=== PATIENT | male | born 1950 | race Caucasian/White ===

== ENCOUNTER 2025-02-23 10:19 | Emergency (ER) | payer OTHER, SELFPAY ==
[2025-02-23] VITALS (8 sets, daily range): BP systolic 113–136; BP diastolic 77–88; PULSE 90–107; RESP 18; TEMP 36.8; O2SAT 90–97; BMI 29.2
--- NOTE | 2025-02-23 11:06 | XRR_ITS ---
PROCEDURE INFORMATION: Exam: XR Chest Exam date and time: 02/23/2025 11:11 AM Age: 74 years old Clinical indication: Shortness of breath TECHNIQUE: Imaging protocol: Radiologic exam of the chest. Views: 1 view. COMPARISON: No relevant prior studies available. FINDINGS: Lungs: Unremarkable. No consolidation. Pleural spaces: Unremarkable. No pleural effusion. No pneumothorax. Heart/Mediastinum: Unremarkable. No cardiomegaly. Bones/joints: Unremarkable. XR/XR chest 1V portable [id number] IMPRESSION: No acute findings.
--- NOTE | 2025-02-23 11:14 | W.ED.COVID ---
HPI - COVID General: Chief Complaint: COVID symptoms Stated Complaint: Score throat coughing Fever on and off Time Seen by Provider: 02/23/25 11:06 History of Present Illness: 74-year-old male with a history of hypertension and diabetes who presents to the emergency room with cough, congestion, sore throat, fevers for about 4 to 5 days now. He said he thought it was can get better but it did not. He is not really short of breath. No chest pain. No altered mental status. No nausea or vomiting. COVID Results: SARS-CoV-2 (PCR) Pending Today, 11:13 Related Data Previous Rx's ?Medication ?Instructions ?Recorded benzonatate 200 mg capsule 200 mg PO TID PRN cough #30 caps 02/23/25 dexamethasone 6 mg tablet 6 mg PO DAILY 5 days #5 tabs 02/23/25 doxycycline monohydrate 100 mg 100 mg PO BID 10 days #20 caps 02/23/25 capsule Allergies Allergy/AdvReac Type Severity Reaction Status Date / Time No Known Allergies Allergy Verified 02/23/25 11:12 Review of Systems Narrative: Constitutional symptoms: Negative except as documented in HPI. Skin symptoms: Negative except as documented in HPI. Eye symptoms: Negative except as documented in HPI. ENMT symptoms: Negative except as documented in HPI. Respiratory symptoms: Negative except as documented in HPI. Cardiovascular symptoms: Negative except as documented in HPI. Gastrointestinal symptoms: Negative except as documented in HPI. Genitourinary symptoms: Negative except as documented in HPI. Musculoskeletal symptoms: Negative except as documented in HPI. Neurologic symptoms: Negative except as documented in HPI. Psychiatric symptoms: Negative except as documented in HPI. Endocrine symptoms: Negative except as documented in HPI. Physical Exam Narrative: EXAM NARRATIVE: General: Alert, no acute distress. Skin: Warm, dry. Head: Normocephalic, atraumatic. Neck: Supple, trachea midline. Eye: Extraocular movements are intact. Ears, nose, mouth and throat: mucosa moist. Cardiovascular: Regular, Normal peripheral perfusion. Respiratory: Lungs are clear to auscultation, respirations are non-labored, breath sounds are equal, Symmetrical chest wall expansion. Gastrointestinal: Soft, Nontender, Non distended Musculoskeletal: Normal ROM, no deformity. Neurological: Alert and oriented, No focal neurological deficit observed. Psychiatric: Cooperative, appropriate mood & affect. Course Vital Signs: Vital signs: Vital Signs Temperature 98.3 F 02/23/25 11:08 Pulse Rate 107 H 02/23/25 11:08 Respiratory Rate 18 02/23/25 11:08 Blood Pressure 123/83 02/23/25 11:40 Pulse Oximetry 93 02/23/25 11:40 Oxygen Delivery Me thod Room Air 02/23/25 11:18 MDM - COVID Medical Decision Making Medical decision making Patient's reason for coming to the emergency room: Cough, congestion Social determinants: Retired I reviewed the patient's medical record. No previous visits here. I reviewed the patient's current home meds Patient takes medicines for hypertension and diabetes Alternate historians: None Differential diagnosis for patient with shortness of breath includes but is not limited to and based on the above HPI, review of systems and physical exam: Pneumonia. Bronchitis. Asthma or COPD with acute exacerbation. Acute coronary syndrome / [place]. Pulmonary embolism. Anxiety. Congestive heart failure. Viral infections including influenza and Covid-19. Atrial fibrillation. Anxiety. Pleural effusion. Pneumothorax. Orders placed to evaluate differential diagnosis based on the above differential, HPI and physical exam Chest x-ray: No acute process. No infiltrate. No pneumothorax. This was reviewed and interpreted by myself the emergency room physician. I also reviewed the radiology report. Lab Review: Laboratory results were reviewed and interpreted by myself the emergency room physician. No leukocytosis. No anemia. No renal failure. Reexamination: Patient remained stable. No increased work of breathing. No altered mental status. No focal motor deficits. Assessment and plan: Bronchitis ? Decadron in the emergency room. - Discharged home - Discussed plan with patient. Answered any questions. - Evaluation and treatment of this problem were appropriate in the emergency setting. Lab Data 02/23/25 11:17 02/23/25 11:17 Radiology Impressions Chest X-Ray 02/23/25 11:06 IMPRESSION: No acute findings. Laboratory Results WBC 5.79 10^3/uL (3.29-11.43) 02/23/25 11:17 RBC 5.09 10^6/uL (3.85-5.65) 02/23/25 11:17 Hgb 15.60 g/dL (11.27-16.99) 02/23/25 11:17 Hct 47.7 % (37-53) 02/23/25 11:17 MCV 93.7 fl (82-101) 02/23/25 11:17 MCH 30.6 pg (27-33) 02/23/25 11:17 MCHC 32.7 g/dL (30-55) 02/23/25 11:17 RDW 12.4 % (12.1-15.1) 02/23/25 11:17 Plt Count 162 10^3/cmm (157-399) 02/23/25 11:17 MPV 9.2 fL (7.4-10.4) 02/23/25 11:17 Neut % (Auto) 64.8 % 02/23/25 11:17 Lymph % (Auto) 20.9 % 02/23/25 11:17 Bowie % (Auto) 11.9 % 02/23/25 11:17 Eos % (Auto) 1.7 % 02/23/25 11:17 Baso % (Auto) 0.5 % 02/23/25 11:17 Neut # (Auto) 3.75 10^3/uL (1.8-7.7) 02/23/25 11:17 Lymph # (Auto) 1.2 10^3/uL (0.8-4.8) 02/23/25 11:17 Bowie # (Auto) 0.7 10^3/uL (0.2-0.9) 02/23/25 11:17 Eos # (Auto) 0.1 10^3/uL (0.0-0.8) 02/23/25 11:17 Baso # (Auto) 0.0 10^3/uL (0.0-0.1) 02/23/25 11:17 Nucleated RBC % (auto) 0 % 02/23/25 11:17 Nucleated RBCs # 0.0 /100WBC 02/23/25 11:17 Sodium 137 mmol/L (136-145) 02/23/25 11:17 Potassium 4.1 mmol/L (3.5-5.1) 02/23/25 11:17 Chloride 100 mmol/L (98-107) 02/23/25 11:17 Carbon Dioxide 25 mmol/L (22-29) 02/23/25 11:17 Anion Gap 16.1 (5-19) 02/23/25 11:17 BUN 14 mg/dL (8-23) 02/23/25 11:17 Creatinine 1.1 mg/dL (0.7-1.2) 02/23/25 11:17 GFR Calculation Not Reportable 02/23/25 11:17 Glucose 152 mg/dL (65-115) H 02/23/25 11:17 Calculated Osmolality 287 mOsm/kg (285-295) 02/23/25 11:17 Lactic Acid 1.1 mmol/L (0.5-2.2) 02/23/25 11:17 Calcium 9.4 mg/dL (8.5-10.5) 02/23/25 11:17 Total Bilirubin 0.5 mg/dL (0.15-1.2) 02/23/25 11:17 AST 9 U/L (0-40) 02/23/25 11:17 ALT 7 U/L (0-41) 02/23/25 11:17 Alkaline Phosphatase 69 U/L (40-130) 02/23/25 11:17 C-Reactive Protein 169.0 mg/L (0.0-4.9) H 02/23/25 11:17 Total Protein 7.0 g/dL (6.6-8.7) 02/23/25 11:17 Albumin 4.1 g/dL (3.5-5.2) 02/23/25 11:17 Globulin 2.9 g/dL (1.3-4.6) 02/23/25 11:17 Procalcitonin 0.21 ng/mL (0-0.5) 02/23/25 11:17 SARS-CoV-2 (PCR) Pending Today, 11:13 All radiology interpretation(s) finalized by discharge Discharge Plan Discharge Patient Disposition: Home Clinical Impression: Bronchitis Condition: Stable Prescriptions: New benzonatate 200 mg capsule 200 mg PO TID PRN (Reason: cough) Qty: 30 0RF dexamethasone 6 mg tablet 6 mg PO DAILY 5 Days Qty: 5 0RF doxycycline monohydrate 100 mg capsule 100 mg PO BID 10 Days Qty: 20 0RF Discharge Orders: Discharge ED (Routine); Ordered 02/23/25 Ordered By: Magaly Padron Discharge Diet: Usual diet Discharge Activity: Increase activity as tolerated Patient Instructions: Acute Bronchitis (ED), Opioid Safety, Pain Management, Patient Portal & Junior Instructions Activity Restrictions/Additional Instructions: [facility]. You have been screened and evaluated and felt safe for discharge. Health conditions do change or evolve sometimes and as such it is important that you follow up with your Primary Doctor to be re checked, 3-5 days is a general good time frame for follow up. You are always welcome to return to the ED for re assessment if your symptoms are worsening or you have new concerns. (Please note that included in your discharge packet is information concerning opioid safety and pain management. This information is given to all patients who are discharged from the ER regardless of their discharge diagnosis or the medicines they usually take or are prescribed.) Print Language: [place] Coding Level of Care Code ED Nuclear Radiologist for Reji Yousif
[2025-02-23 11:26] LABS: Hematocrit 47.7 % (37-53); Hemoglobin 15.60 g/dL (11.27-16.99); Mean Corpuscular HGB Conc 32.7 g/dL (30-55); Mean Corpuscular Hemoglobin 30.6 pg (27-33); Mean Corpuscular Volume 93.7 fl (82-101); Nucleated Red Blood Cells % 0 %; Platelet Count 162 10^3/cmm (157-399); Red Blood Count 5.09 10^6/uL (3.85-5.65); White Blood Count 5.79 10^3/uL (3.29-11.43)
[2025-02-23 11:45] LABS: Lactic Sepsis W/Reflex 1.1 mmol/L (0.5-2.2)
[2025-02-23 11:48] LABS: Alanine Aminotransferase 7 U/L (0-41); Albumin Level 4.1 g/dL (3.5-5.2); Alkaline Phosphatase 69 U/L (40-130); Anion Gap 16.1 (5-19); Aspartate Amino Transferase 9 U/L (0-40); Blood Urea Nitrogen 14 mg/dL (8-23); Calcium 9.4 mg/dL (8.5-10.5); Carbon Dioxide 25 mmol/L (22-29); Chloride 100 mmol/L (98-107); Globulin 2.9 g/dL (1.3-4.6); Glucose 152 mg/dL (65-115); Osmolality Calculated 287 mOsm/kg (285-295); Potassium 4.1 mmol/L (3.5-5.1); Sodium 137 mmol/L (136-145); Total Protein 7.0 g/dL (6.6-8.7)
[2025-02-23 11:53] LABS: Procalcitonin 0.21 ng/mL (0-0.5)
[2025-02-23 12:48] LABS: Respiratory Syncytial Virus Ce NEGATIVE (Negative); SARS-CoV-2 PCR NEGATIVE (Negative)
== END 2025-02-23 12:30 | disposition home or self-care (01) ==
PROVIDERS: Emergency Provider Emergency Medicine
DX: J40 Bronchitis, not specified as acute or chronic (principal); Z11.52 Encounter for screening for COVID-19
CPT/HCPCS: 36415; 71045; 80053; 83605; 84145; 85025; 86140; 87040; 87637; 96372; 99284; J1100